=== PATIENT | female | born 1965 | race Caucasian/White ===

== ENCOUNTER 2018-04-27 09:31 | Outpatient (CLI) | payer OTHER ==
[~2018-04-27 09:31] MED LIST: CATAFLAN PO; COZAAR50 MG PO; JANUMET XR 1001 EACH PO; NABUMETONE500 MG PO; PERCOCET 5-3251 EACH PO; SINGULAIR10 MG PO
== END 2018-04-27 09:49 | disposition home or self-care (01) ==
LOC: SONOGRAMA 09:31
DX: N95.0 Postmenopausal bleeding (principal); R10.84 Generalized abdominal pain